=== PATIENT | female | born 1965 | race Caucasian/White ===

== ENCOUNTER 2018-02-02 10:06 | Inpatient (IN) | payer OTHER ==
[2018-02-02 10:27] LABS: #Eosinphils 0.2 thou/uL (0.0-0.7); #Lymphocytes 1.3 thou/uL (1.20-3.40); #Monocytes 0.6 thou/uL (0.11-0.59); #Neutrophils 14.2 thou/uL (1.40-6.50); %Basophils 0.1 % (0.0-1.0); %Lymphocytes 7.9 % (21.0-51.0); %Monocytes 3.9 % (0.0-10.0); Hemoglobin 13.8 g/dL (12.0-16.0); Mean Corpuscular HGB CONC 32.9 g/dL (32.0-36.0); Mean Corpuscular Hemoglobin 29.8 pg (27.0-31.0); Mean Corpuscular Volume 90.7 fL (78.0-98.0); Mean Platelet Volume 7.8 fL (7.4-10.4); Platelet Count 254 thou/uL (130-400); RBC Distribution Width 11.8 % (11.5-14.5); Red Blood Cell (RBC) Count 4.62 mill/uL (4.20-5.40); White Blood Cell (WBC) Count 16.3 thou/uL (4.8-10.8)
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
[2018-02-02 10:49] LABS: ALT (SGPT) 33 U/L (8-55); AST (SGOT) 38 U/L (5-34); Albumin 4.4 g/dL (3.5-5.0); Alkaline Phosphatase 61 U/L (40-150); Anion Gap 13 mmol/L (10-20); BUN (Urea Nitrogen) 15 mg/dL (9.8-20.1); Calc. Creatinine Clearance 0 mL/min (70-130); Calcium 9.7 mg/dL (7.8-10.44); Carbon Dioxide 24 mmol/L (22-29); Chloride 106 mmol/L (98-107); Estimated GFR-MDRD 60; Globulin 2.9 g/dL (2.4-3.5); Glucose 113 mg/dL (70-105); Potassium 3.7 mmol/L (3.5-5.1); Protein, Total 7.3 g/dL (6.0-8.3); Sodium 139 mmol/L (136-145)
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
[2018-02-02] MEDS ORDERED: Ketorolac Tromethamine 30 MG/ML VIAL ONE (12:22)
[2018-02-02] MEDS ORDERED: ISOVUE-370 76%-LOCM 1 ML ONE (14:06)
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
[2018-02-02] MEDS ORDERED: HYDROcodone/Acetaminophen 5/325 mg Tablet PO PRN ×2 (15:34)
[2018-02-02] MEDS ORDERED: Acetaminophen 325 MG TAB PO PRN (15:34)
[2018-02-02] MEDS ORDERED: Ondansetron HCl/PF 4 MG/2 ML Vial IVP PRN ×2 (15:34→15:53)
[2018-02-02] MEDS ORDERED: Ketorolac Tromethamine 30 MG/ML VIAL IVP PRN (15:34)
[2018-02-02] MEDS ORDERED: Ondansetron ODT 4 MG TAB SL PRN (15:34)
[2018-02-02] MEDS ORDERED: hydrALAZINE 20 MG/ML VIAL SLOW IVP PRN (15:53)
[2018-02-02] MEDS ORDERED: Ondansetron ODT 4 MG TAB PO PRN (15:53)
[2018-02-02] MEDS ORDERED: Morphine 4 MG/ML VIAL SLOW IVP PRN (15:53)
[2018-02-02] MEDS ORDERED: Ibuprofen 600 MG TAB PO PRN (15:56)
[2018-02-02] MEDS ORDERED: traMADol HCl 50 MG TAB PO PRN ×2 (15:56)
[2018-02-02] MEDS ORDERED: Ketorolac Tromethamine 30 MG/ML VIAL IVP SCH (16:00)
[2018-02-02] MEDS ORDERED: Acetaminophen 500 MG TAB PO SCH (16:00)
[2018-02-02] MEDS ORDERED: Acetaminophen 1,000 MG in Premix Bag 1 BAG IVPB SCH (16:00)
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
[2018-02-02] MEDS: Famotidine 20 MG TAB PO SCH (20:19)
[2018-02-02 20:40] VITALS: BMI 25.9
[2018-02-02] MEDS: Calcium Carbonate 500 MG ChewTAB PO SCH (21:39)
[2018-02-02] MEDS: CeleCOXIB 100 MG CAP PO SCH (21:39)
[2018-02-02] MEDS: Gabapentin 300 MG CAP PO SCH (21:40)
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
[2018-02-02] MEDS: Ibuprofen 600 MG TAB PO SCH (23:14)
[2018-02-02] MEDS: traMADol HCl 50 MG TAB PO SCH (23:14)
[2018-02-03 06:06] LABS: #Eosinphils 0.1 thou/uL (0.0-0.7); #Lymphocytes 1.7 thou/uL (1.20-3.40); #Monocytes 0.8 thou/uL (0.11-0.59); #Neutrophils 5.6 thou/uL (1.40-6.50); %Basophils 0.1 % (0.0-1.0); %Eosinophils 1.5 % (0.0-10.0); %Lymphocytes 20.4 % (21.0-51.0); %Monocytes 9.1 % (0.0-10.0); %Neutrophils 68.9 % (42.0-75.0); Hemoglobin 12.2 g/dL (12.0-16.0); Mean Corpuscular HGB CONC 33.6 g/dL (32.0-36.0); Mean Corpuscular Hemoglobin 30.4 pg (27.0-31.0); Mean Corpuscular Volume 90.3 fL (78.0-98.0); Mean Platelet Volume 7.8 fL (7.4-10.4); Platelet Count 206 thou/uL (130-400); RBC Distribution Width 11.8 % (11.5-14.5); Red Blood Cell (RBC) Count 4.02 mill/uL (4.20-5.40); White Blood Cell (WBC) Count 8.2 thou/uL (4.8-10.8)
[2018-02-03] MEDS: traMADol HCl 50 MG TAB PO SCH ×3 (06:11→18:48)
[2018-02-03] MEDS: Ibuprofen 600 MG TAB PO SCH ×3 (06:13→18:46)
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
[2018-02-03] MEDS: Gabapentin 300 MG CAP PO SCH ×3 (08:34→20:17)
[2018-02-03] MEDS: traMADol HCl 50 MG TAB PO PRN (08:34)
[2018-02-03] MEDS: Famotidine 20 MG TAB PO SCH ×2 (08:34→20:16)
[2018-02-03] MEDS ORDERED: Promethazine HCl 25 MG/ML VIAL IM PRN ×2 (13:35→14:56)
[2018-02-03] MEDS: Scopolamine 1.5 mg/72 hour Patch TD SCH (13:57)
[2018-02-03] MEDS ORDERED: Promethazine HCl 25 MG/ML VIAL IM SCH (14:00)
[2018-02-03] MEDS: Acetaminophen 500 MG TAB PO SCH ×2 (14:04→20:16)
[2018-02-03] MEDS: Polyethylene Glycol 3350 17 GM Packet PO SCH (15:43)
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
[2018-02-03] MEDS: Calcium Carbonate 500 MG ChewTAB PO SCH (20:14)
[2018-02-03] MEDS: CeleCOXIB 100 MG CAP PO SCH (20:15)
[2018-02-04] MEDS: traMADol HCl 50 MG TAB PO SCH ×4 (00:02→18:08)
[2018-02-04] MEDS: Ibuprofen 600 MG TAB PO SCH ×5 (00:02→18:08)
[2018-02-04] MEDS: Acetaminophen 500 MG TAB PO SCH ×4 (01:46→21:16)
[2018-02-04] MEDS: Polyethylene Glycol 3350 17 GM Packet PO SCH (07:55)
[2018-02-04] MEDS: Famotidine 20 MG TAB PO SCH ×2 (07:55→21:19)
[2018-02-04] MEDS: Gabapentin 300 MG CAP PO SCH ×3 (07:55→21:19)
[2018-02-04] MEDS: traMADol HCl 50 MG TAB PO PRN ×2 (07:59→14:38)
[2018-02-04] MEDS ORDERED: Enoxaparin Sodium 40 MG/0.4 ML SYRINGE SC SCH (10:00)
[2018-02-04] MEDS: Cyclobenzaprine 10 MG TAB PO PRN (10:43)
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
[2018-02-04] MEDS: Calcium Carbonate 500 MG ChewTAB PO SCH (21:16)
[2018-02-04] MEDS: CeleCOXIB 100 MG CAP PO SCH (21:17)
[2018-02-05] MEDS: Ibuprofen 600 MG TAB PO SCH ×4 (00:12→17:39)
[2018-02-05] MEDS: traMADol HCl 50 MG TAB PO SCH ×4 (00:12→17:39)
[2018-02-05] MEDS: Acetaminophen 500 MG TAB PO SCH ×4 (01:14→20:35)
[2018-02-05] MEDS: Cyclobenzaprine 10 MG TAB PO PRN ×2 (03:33→12:05)
[2018-02-05] MEDS: Enoxaparin Sodium 40 MG/0.4 ML SYRINGE SC SCH (08:23)
[2018-02-05] MEDS: Famotidine 20 MG TAB PO SCH ×2 (08:23→20:46)
[2018-02-05] MEDS: Polyethylene Glycol 3350 17 GM Packet PO SCH (08:23)
[2018-02-05] MEDS: Gabapentin 300 MG CAP PO SCH ×3 (08:23→20:48)
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
[2018-02-05] MEDS: Calcium Carbonate 500 MG ChewTAB PO SCH (20:37)
[2018-02-05] MEDS: CeleCOXIB 100 MG CAP PO SCH (20:39)
[2018-02-05] MEDS: Senokot S 8.6-50 MG TAB PO SCH (20:48)
[2018-02-06] MEDS: traMADol HCl 50 MG TAB PO SCH ×4 (00:14→20:13)
[2018-02-06] MEDS: Ibuprofen 600 MG TAB PO SCH ×4 (00:14→20:12)
[2018-02-06] MEDS: Acetaminophen 500 MG TAB PO SCH ×4 (03:00→21:24)
[2018-02-06] MEDS: Cyclobenzaprine 10 MG TAB PO PRN (03:02)
[2018-02-06] MEDS: Polyethylene Glycol 3350 17 GM Packet PO SCH (09:08)
[2018-02-06] MEDS: Senokot S 8.6-50 MG TAB PO SCH ×2 (09:11→21:31)
[2018-02-06] MEDS: Famotidine 20 MG TAB PO SCH ×2 (09:12→21:33)
[2018-02-06] MEDS: Enoxaparin Sodium 40 MG/0.4 ML SYRINGE SC SCH (09:12)
[2018-02-06] MEDS: Gabapentin 300 MG CAP PO SCH ×3 (09:18→21:35)
[2018-02-06] MEDS: Scopolamine 1.5 mg/72 hour Patch TD SCH (15:21)
[2018-02-06] MEDS: traMADol HCl 50 MG TAB PO PRN (16:15)
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
[2018-02-06] MEDS: Calcium Carbonate 500 MG ChewTAB PO SCH (21:32)
[2018-02-06] MEDS: CeleCOXIB 100 MG CAP PO SCH (21:32)
[2018-02-07] MEDS: traMADol HCl 50 MG TAB PO SCH ×5 (03:03→23:52)
[2018-02-07] MEDS: Ibuprofen 600 MG TAB PO SCH ×5 (03:03→23:52)
[2018-02-07] MEDS: Cyclobenzaprine 10 MG TAB PO PRN (03:42)
[2018-02-07] MEDS: Acetaminophen 500 MG TAB PO SCH ×4 (03:42→20:46)
[2018-02-07] MEDS: Famotidine 20 MG TAB PO SCH ×2 (12:26→20:47)
[2018-02-07] MEDS: Gabapentin 300 MG CAP PO SCH ×3 (12:26→20:48)
[2018-02-07] MEDS: Enoxaparin Sodium 40 MG/0.4 ML SYRINGE SC SCH (12:27)
[2018-02-07] MEDS: Polyethylene Glycol 3350 17 GM Packet PO SCH (12:28)
[2018-02-07] MEDS: Senokot S 8.6-50 MG TAB PO SCH ×2 (12:28→20:43)
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
[2018-02-07] MEDS: Calcium Carbonate 500 MG ChewTAB PO SCH (20:47)
[2018-02-07] MEDS: CeleCOXIB 100 MG CAP PO SCH (20:47)
[2018-02-08] MEDS: Acetaminophen 500 MG TAB PO SCH ×4 (03:01→18:49)
[2018-02-08] MEDS: Cyclobenzaprine 10 MG TAB PO PRN ×2 (03:01→17:20)
[2018-02-08] MEDS: traMADol HCl 50 MG TAB PO SCH ×3 (06:22→17:18)
[2018-02-08] MEDS: Ibuprofen 600 MG TAB PO SCH (06:27)
[2018-02-08] MEDS: Polyethylene Glycol 3350 17 GM Packet PO SCH (08:09)
[2018-02-08] MEDS: Senokot S 8.6-50 MG TAB PO SCH (08:09)
[2018-02-08] MEDS: Famotidine 20 MG TAB PO SCH (08:17)
[2018-02-08] MEDS: Enoxaparin Sodium 40 MG/0.4 ML SYRINGE SC SCH (08:17)
[2018-02-08] MEDS: Gabapentin 300 MG CAP PO SCH ×2 (08:17→18:50)
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
[2018-02-08 16:07] VITALS: BP 108/73; TEMP 98.6
[2018-02-08] MEDS: Calcium Carbonate 500 MG ChewTAB PO SCH (17:23)
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
== END 2018-02-08 20:04 | DRG 552 ==
LOC: ERS 10:06 → SURG B 12:18 → ERS 14:06
PROVIDERS: ADMIT Specialist; ATTEND Specialist
DX: S32.019A Unspecified fracture of first lumbar vertebra, initial encounter for closed fracture (principal); S22.41XA Multiple fractures of ribs, right side, initial encounter for closed fracture; S32.10XA Unspecified fracture of sacrum, initial encounter for closed fracture; S42.102A Fracture of unspecified part of scapula, left shoulder, initial encounter for closed fracture; S32.020A Wedge compression fracture of second lumbar vertebra, initial encounter for closed fracture; S32.009A Unspecified fracture of unspecified lumbar vertebra, initial encounter for closed fracture; M51.26 Other intervertebral disc displacement, lumbar region; V44.5XXA Car driver injured in collision with heavy transport vehicle or bus in traffic accident, initial encounter; R40.2412 Glasgow coma scale score 13-15, at arrival to emergency department
CPT/HCPCS: 36415; 70450; 71045; 71260; 72125; 72148; 74177; 80053; 85025; 90471; 90686; 96374; G0008; G0390; G8978-GP-CM; G8979-GP-CI; G8987-GO-CM; G8988-GO-CJ; J1650; J1885; J2550; L0639; Q0162

== ENCOUNTER 2018-02-22 10:03 | Outpatient (CLI) | payer OTHER ==
--- NOTE | 2018-02-22 11:45 | RAD ---
LUMBAR SPINE TWO VIEWS: Date: 02-22-18 Provided Clinical History: Fracture. FINDINGS: Correlation is made with the exam of 02-02-18. Superior endplate vertebral body height loss at L2 is noted to a mild degree. Lumbar alignment appear s unchanged with anterolisthesis of L4 on L5 again seen. Vertebral body heights appear otherwise pres erved. Pedicles appear intact. IMPRESSION: Superior endplate compression deformity at L2, mild. POS: ALVIN
== END 2018-02-22 10:04 | disposition home or self-care (01) ==
LOC: TBSIIMAG 10:03
PROVIDERS: ATTEND Surgery
DX: S32.009A Unspecified fracture of unspecified lumbar vertebra, initial encounter for closed fracture (principal); M43.8X6 Other specified deforming dorsopathies, lumbar region
CPT/HCPCS: 72100

== ENCOUNTER 2018-03-04 07:41 | Outpatient (CLI) | payer OTHER ==
--- NOTE | 2018-03-04 09:02 | RAD ---
LUMBAR SPINE 2 VIEWS: Date: 03/04/18 HISTORY: Follow-up back injury. Back pain. COMPARISON: 02/22/18. FINDINGS: The mild compression involving the superior end plate of L2 is again noted. There has been no signifi cant change in height or alignment from 02/22/18. The other lumbar vertebra maintain normal height. Slight anterolisthesis at L4-5 is unchanged. Mild l oss of disc space at L5-S1 is unchanged. The mild degenerative change and facet hypertrophy is again noted. Incidentally noted are numerous small calcific densities overlying the right abdomen, most consistent with numerous gallstones. IMPRESSION: 1. Mild superior end plate compression at L2 is stable in appearance from the recent exam. 2. Degenerative changes of lumbar spine again noted as described. 3. Calcifications overlying the right upper abdomen suggest numerous small gallstones. Recommend cor relation with gallbladder ultrasound if this has not been previously evaluated. POS: HUAN
== END 2018-03-04 07:42 | disposition home or self-care (01) ==
LOC: TBSIIMAG 07:41
PROVIDERS: ATTEND Surgery
DX: M54.5 Low back pain (principal); M47.896 Other spondylosis, lumbar region
CPT/HCPCS: 72100

== ENCOUNTER 2018-03-17 14:51 | Outpatient (CLI) | payer OTHER ==
--- NOTE | 2018-03-17 19:46 | ULT ---
THYROID ULTRASOUND: 03/17/18 INDICATION: History of thyroid nodules. FINDINGS: The right thyroid lobe measures 4.9 x 1.3 x 1.8 cm. Thyroid isthmus measures 0.35 cm. The left thyroi d lobe measures 5.5 x 1.8 x 3.3 cm. There is solid hyperechoic 5 mm nodule in the superior pole of the right thyroid gland. There is a 1. 3 cm isoechoic thyroid nodule in the lower pole of the right thyroid lobe. There is a 6 mm cystic and solid nodule within the left midline isthmus. There is a 2.3 cm solid and cystic heterogeneous well circumscribed lesion within the left mid gland. IMPRESSION: TIRADS 2 lesion of the left mid gland measuring up to 2.3 cm. Additional TIRADS 3 lesion within the l ower pole of the right thyroid gland. This is below 1.5 cm in its greatest dimension. No additional f ollowup is recommended. The smaller nodules require no additional followup. POS: ALVIN
== END 2018-03-17 14:52 | disposition home or self-care (01) ==
LOC: BICULT 14:51
PROVIDERS: ATTEND Family Medicine
DX: E04.2 Nontoxic multinodular goiter (principal); E07.9 Disorder of thyroid, unspecified
CPT/HCPCS: 76536

== ENCOUNTER 2018-03-25 07:41 | Outpatient (CLI) | payer OTHER ==
--- NOTE | 2018-03-25 08:08 | RAD ---
LUMBAR SPINE 2 VIEWS: Date: 03/25/18 COMPARISON: 03/06/18, 02/22/18. HISTORY: Follow-up fracture. FINDINGS: Redemonstration of five lumbar-type vertebral bodies. Stable spondylolisthesis. There is evidence of a mild fracture involving the superior end plate of L2. Sclerosis is noted suggesting a component of healing. There are degenerative changes in the posterior elements. Stable hyperdensities in the right lower quadrant. IMPRESSION: Healing mild superior end plate irregularity at L2. POS: HUAN
== END 2018-03-25 07:42 | disposition home or self-care (01) ==
LOC: TBSIIMAG 07:41
PROVIDERS: ATTEND Surgery
DX: M54.5 Low back pain (principal); S32.029D Unspecified fracture of second lumbar vertebra, subsequent encounter for fracture with routine healing
CPT/HCPCS: 72100

== ENCOUNTER 2020-03-26 08:22 | Outpatient (CLI) | payer OTHER ==
--- NOTE | 2020-03-26 10:01 | RAD ---
LUMBAR SPINE 3 VIEWS: HISTORY: Spondylolisthesis. COMPARISON: 03/25/2018. FINDINGS: Five lumbar-type vertebrae. Mild loss of disk body height at L2, unchanged. Disk space heights are preserved. Mild hypertrophic change in the posterior elements at L4-L5 and L5-S1. Mild loss of disk space heigh t at L5-S1. SPONDYLOLISTHESIS: L4-L5: Upright neutral: 6.1 mm of anterolisthesis; upright extension: 4.3 mm of anterolisthesis; ext ent of flexion 6.7 mm of anterolisthesis. IMPRESSION: Grade I anterolisthesis of L4 upon L5. POS: AH
== END 2020-03-26 08:23 | disposition home or self-care (01) ==
LOC: TBSIIMAG 08:22
PROVIDERS: ATTEND Specialist
DX: M43.16 Spondylolisthesis, lumbar region (principal)
CPT/HCPCS: 72100